=== PATIENT | male | born 1985 | race African-American/Black ===

== ENCOUNTER 2020-12-26 08:58 | Emergency (ER) | payer MEDICAID ==
[~2020-12-26 08:58] MED LIST: IBUPROFEN800 MG PO; KEFLEX250 MG PO; VALACYCLOVIR1000 MG PO
[2020-12-26] MEDS ORDERED: NORCO 5-325 TA1 EACH PO (10:03)
[2020-12-26] MEDS ORDERED: NAPROXEN500 MG PO (10:03)
[2020-12-26] MEDS ORDERED: CYCLOBENZAPRINE10 MG PO (10:03)
== END 2020-12-26 10:29 | disposition home or self-care (01) ==
LOC: FER 08:58
DX: M25.512 Pain in left shoulder (principal); M54.6 Pain in thoracic spine; F17.210 Nicotine dependence, cigarettes, uncomplicated
CPT/HCPCS: 73030

== ENCOUNTER 2021-08-20 12:10 | Emergency (ER) | payer MEDICAID ==
[~2021-08-20 12:10] MED LIST changes: +CYCLOBENZAPRINE10 MG PO; +NAPROXEN500 MG PO; +NORCO 5-325 TA1 EACH PO
== END 2021-08-20 12:52 | disposition home or self-care (01) ==
LOC: FER 12:10
DX: K62.89 Other specified diseases of anus and rectum (principal); L98.9 Disorder of the skin and subcutaneous tissue, unspecified
CPT/HCPCS: 99283

== ENCOUNTER 2021-11-19 09:33 | Emergency (ER) | payer OTHER | END 2021-11-19 10:49 | disposition home or self-care (01) | LOC: FER 09:33 | DX: H00.15 Chalazion left lower eyelid (principal); Z87.891 Personal history of nicotine dependence | CPT/HCPCS: 99283 ==